=== PATIENT | female | born 1970 | race Caucasian/White ===

== ENCOUNTER 2019-03-09 18:56 | Inpatient (IN) | payer BC, MEDICAID ==
[~2019-03-09] VITALS: Ht 154.9 cm; Wt 93.0 kg
[2019-03-09] MEDS: NACL 0.9% 1,000 ML IV SCH (04:29)
[2019-03-09 19:02] VITALS: BP 126/89
--- NOTE | 2019-03-09 19:18 | NUR ---
PT C/O FEVER, BODY ACHES, HEADACHE, CHILLS X2 DAYS. PT WENT TO URGENT CARE AND WAS TOLD SHE HAD EAR INFECTION. C/O RLQ ABD PAIN, ABD SLIGHTLY TENDER TO PALP. PT STATES URGENT CARE SENT PT TO ER TO RULE OUT APPENDICITIS. PT STATES SHE HAS NAUSEA W/ ONE EPISODE OF VOMITING LAST NIGHT. DENIES DIARRHEA. TOOK TYLENOL AT 1300 TODAY. LMP 02/23/19. VSS AT THIS TIME. MEDHX: DENIES ALLERGIES: DENIES
--- NOTE | 2019-03-09 19:26 | NUR ---
Dr. Peres examining patient.
[2019-03-09] MEDS ORDERED: NACL 0.9% 1,000 ML IV SCH (19:35)
[2019-03-09] MEDS ORDERED: ACETAMINOPHEN 325 MG TAB PO ONE (19:35)
[2019-03-09] MEDS ORDERED: ONDANSETRON 4 MG/2 ML VIAL IVP ONE (19:35)
[2019-03-09 20:14] LABS: APPEARANCE,URINE CLOUDY (CLEAR); BILIRUBIN,URINE NEGATIVE (NEGATIVE); BLOOD, URINE 3+ (NEGATIVE); COLOR,URINE YELLOW (YELLOW); LEUKOCYTE ESTERASE ,URINE TRACE (NEGATIVE); NITRITE, URINE POSITIVE (NEGATIVE); UGLUCOSE NEGATIVE (NEGATIVE)
[2019-03-09 20:15] LABS: BASOPHILS # (AUTO) 0.1 K/uL (0.00-0.22); EOSINOPHILS % (AUTO) 0.2 % (0.0-4.0); LYMPHOCYTES # (AUTO) 2.8 K/uL (2.5-16.5); RED CELL DISTRIBUTION WIDTH 14.3 % (11.6-13.7)
[2019-03-09 20:17] LABS: BASOPHILS % (AUTO) 0.5 % (0.0-2.0); HEMATOCRIT 38.9 % (36-48); HEMOGLOBIN 12.4 g/dL (12.0-16.0); LYMPHOCYTES % (AUTO) 16.5 % (20.5-51.1); MEAN CORPUSCULAR HEMOGLOBIN 26 pg (27-31); MEAN CORPUSCULAR HGB CONC 32 g/dL (33-37); MEAN CORPUSCULAR VOLUME 82.6 fL (80-94); MONOCYTES # (AUTO) 2.1 K/uL (0.8-1.0); MONOCYTES % (AUTO) 12.1 % (1.7-9.3); NEUTROPHILS % (AUTO) 70.7 % (42.2-75.2); PLATELET COUNT (AUTO) 318 K/uL (140-450); RED BLOOD CELL COUNT(AUTO) 4.71 MIL/uL (4.20-5.40); WHITE BLOOD COUNT (AUTO) 16.9 K/uL (4.8-10.8)
[2019-03-09 20:31] LABS: WBC,URINE 80-100 /HPF (0-5)
[2019-03-09 20:32] LABS: YEAST,URINE None Seen /HPF (None Seen)
--- NOTE | 2019-03-09 20:43 | NUR ---
PT TAKEN TO CT
--- NOTE | 2019-03-09 20:52 | NUR ---
PT RETURN FROM CT
[2019-03-09 21:00] LABS: ANION GAP 13.8 (8-16); CARBON DIOXIDE 25.9 mmol/L (21-32); CREATININE 0.8 mg/dL (0.6-1.3); POTASSIUM 3.7 mmol/L (3.5-5.1)
[2019-03-09 21:06] LABS: ALBUMIN 3.8 g/dL (3.4-5.0); TOTAL BILIRUBIN 0.5 mg/dL (0.0-1.0)
[2019-03-09] MEDS ORDERED: cefTRIAXone 1,000 MG VIAL ONE (22:59)
[2019-03-09] MEDS ORDERED: NACL 0.9% 1,000 ML IV ONE (23:10)
[2019-03-09] MEDS ORDERED: MORPHINE SULFATE 4 MG/ML SYR IVP ONE (23:10)
[2019-03-09] MEDS ORDERED: DOCUSATE SODIUM 100 MG GELCAP PO PRN (23:15)
[2019-03-09] MEDS ORDERED: MORPHINE SULFATE 2 MG/ML SYR IVP PRN (23:15)
[2019-03-09] MEDS ORDERED: ONDANSETRON 4 MG/2 ML VIAL IM/IVP PRN (23:15)
[2019-03-09] MEDS ORDERED: HYDROcodone/APAP 5/325 MG 1 TAB TAB PO PRN (23:15)
[2019-03-09] MEDS ORDERED: ZOLPIDEM 5 MG TAB PO PRN (23:15)
[2019-03-09 23:50] VITALS: BP 123/66
--- NOTE | 2019-03-09 23:50 | NUR ---
RECEIVED BEDSIDE REPORT FROM ED RN ELLE, FOR PT'S CONTINUITY OF CARE. PT IS AAOX4, AMBULATORY, ENGLISH AND AZERI SPEAKING, FAMILY MEMBER AT BEDSIDE, HAS RIGHT AC 20G, ON ROOM AIR, IS ON BOATSWAIN'S MATE, PT C/O OF LEFT SIDE HEADACHE, AND RIGHT LOWER BACK PAIN, VS CHECKED AND CHARTED. EXPLAINED TO PT THE SUPERVISOR CHEMICAL ROUTINE, PT AND FAMILY MEMBER VERBALIZED UNDERSTANDING. WILL MONITOR PT THROUGHOUT SHIFT.
--- NOTE | 2019-03-09 23:50 | NUR ---
CARE TRANFERED AND REPORT GIVEN TO GRIS RN ROOM 120B. TRANSFERED VIA GURNEY WITH VSS.
[2019-03-09 23:52] LABS: BARBITURATE, URINE NEG. ng/ml (NEG <=200); BENZODIAZEPINE, URINE NEG. ng/mL (NEG <=200); CANNABINOID, URINE NEG. ng/mL (NEG <=50); COCAINE, URINE NEG. ng/mL (NEG <=300); OPIATE, URINE NEG. ng/mL (NEG <=2000); PHENCYCLIDINE SCREEN,URINE NEG. ng/mL (NEG <=25)
[2019-03-10 00:22] LABS: PROTHROMBIN TIME 11.2 secs (10.8-13.4)
[2019-03-10 00:26] LABS: FREE T4 (FREE THYROXINE) 1.24 ng/dL (0.76-1.46); MAGNESIUM 1.7 mg/dL (1.8-2.4); PHOSPHORUS 2.9 mg/dL (2.5-4.9); THYROID STIMULATING HORMONE 2.26 uIU/mL (0.34-3.74)
[2019-03-10] MEDS: ACETAMINOPHEN 325 MG TAB PO PRN ×4 (00:49→23:34)
[2019-03-10] MEDS: KETOROLAC 15 MG/ML VIAL IVP SCH ×2 (01:21→03:10)
--- NOTE | 2019-03-10 01:35 | NUR ---
MD EXPLAINED CT RESULT TO PT. RECOMMENDED NG TUBE PLACEMENT, PT REFUSED NG TUBE INSERTION.
--- NOTE | 2019-03-10 01:40 | NUR ---
PT STARTED TO HAVE CHILLS, REQUESTED FOR WARMING BLANKET. WARMING BLANKET APPLIED. PT STATES PAIN WENT DOWN.
--- NOTE | 2019-03-10 01:50 | NUR ---
TEMP 103.2, NOTIFIED , ORDERED 1L NS BOLUS, AND ADMINISTER TORADOL IVPUSH NOW. COOLING MEASURES IN PLACE.
[2019-03-10] MEDS ORDERED: NACL 0.9% 1,000 ML IV ONE (02:00)
--- NOTE | 2019-03-10 02:10 | NUR ---
IV SITE INFILTRATED. PT C/O PAIN ON THE IV SITE. APNS AND AWARE. WILL INSERT NEW IV.
--- NOTE | 2019-03-10 02:17 | NUR ---
RE-CHECKED VS TEMP 103.2 ORAL, BP 124/54, RR 18, P 133, 96% O2 SAT. MD AWARE. COOLING MEASURES IN PLACE.
--- NOTE | 2019-03-10 02:55 | NUR ---
IV INSERTION SUCCESSFUL. NEW IV SITE LEFT HAND 20G. WILL RESTART IV FLUIDS AND WILL ADMINISTER IV PUSH TORADOL MEDICATION NOW PER MD ORDER. PT TEMP 102.9, COOLING MEASURES IN PLACE. WILL CONTINUE TO MONITOR PT.
--- NOTE | 2019-03-10 03:39 | NUR ---
PT HEART RATE 119, COOLING MEASURES IN PLACE, PT DENIES ANY PAIN. MD AND REDUCTION FURNACE OPERATOR HELPER AWARE.
[2019-03-10 04:00] VITALS: BP 105/54
--- NOTE | 2019-03-10 04:00 | NUR ---
VS CHECKED AND CHARTED. TEMP 99.6, HEART RATE 107, 120 ON TELE MONITOR. FINANCIAL COST ANALYST AND MD AWARE. WILL CONTINUE TO MONITOR PT.
[2019-03-10] MEDS: PANTOPRAZOLE 40 MG INJ VIAL IVP SCH ×2 (04:33→08:18)
[2019-03-10] MEDS: NACL 0.9% 1,000 ML IV SCH ×5 (05:19→23:33)
--- NOTE | 2019-03-10 06:30 | NUR ---
PT LYING DOWN ASLEEP WITH NO SIGNS OF DISTRESS. WILL ENDORSE TO AM SHIFT RN FOR PT'S CONTINUITY OF CARE.
[2019-03-10 07:21] LABS: BASOPHILS % (AUTO) 0.3 % (0.0-2.0); EOSINOPHILS # (AUTO) 0.1 K/uL (0-0.4); EOSINOPHILS % (AUTO) 0.7 % (0.0-4.0); HEMOGLOBIN 9.6 g/dL (12.0-16.0); LYMPHOCYTES % (AUTO) 7.5 % (20.5-51.1); MEAN CORPUSCULAR HEMOGLOBIN 26 pg (27-31); MEAN CORPUSCULAR HGB CONC 32 g/dL (33-37); MEAN CORPUSCULAR VOLUME 82.4 fL (80-94); MONOCYTES # (AUTO) 1.7 K/uL (0.8-1.0); MONOCYTES % (AUTO) 12.3 % (1.7-9.3); NEUTROPHILS # (AUTO) 10.9 K/uL (1.8-7.7); NEUTROPHILS % (AUTO) 79.2 % (42.2-75.2); PLATELET COUNT (AUTO) 281 K/uL (140-450); RED BLOOD CELL COUNT(AUTO) 3.64 MIL/uL (4.20-5.40); RED CELL DISTRIBUTION WIDTH 14.4 % (11.6-13.7); WHITE BLOOD COUNT (AUTO) 13.8 K/uL (4.8-10.8)
--- NOTE | 2019-03-10 07:25 | NUR ---
RECEIVED BEDSIDE REPORT FROM GEODETIC ADVISOR NURSE FOR CONTINUITY OF CARE. PT IS AAOX4, AMBULATORY, MALDIVIAN AND FINNISH SPEAKING, RESPIRATIONS EVEN AND UNLABORED ON ROOM AIR, IV TO RIGHT AC 20G, PATENT, ASYMPTOMATIC, AND INFUSING IVF WELL. VS WNL. ORAL TEMP 98.3. UPDATED BOARD. VERBALIZED PLAN OF CARE WITH PATIENT, SHE VERBALIZED UNDERSTANDING. PATIENT NOW ON CLEAR LIQUID DIET INSTEAD OF NPO, PROVIDED WATER, AND CALLED DIETARY TO FOLLOW UP WITH BREAKFAST TRAY FOR PATIENT. CALL LIGHT WITHIN REACH, WILL CONTINUE TO MONITOR PATIENT.
[2019-03-10 07:40] LABS: ANION GAP 12.7 (8-16); CARBON DIOXIDE 23.5 mmol/L (21-32); CREATININE 0.7 mg/dL (0.6-1.3); POTASSIUM 3.2 mmol/L (3.5-5.1)
[2019-03-10 07:58] VITALS: BP 103/51
--- NOTE | 2019-03-10 08:04 | NUR ---
PATIENT HAS BEEN SCREENED AND CATEGORIZED HIGH NUTRITION RISK. PATIENT WILL BE SEEN WITHIN 1-2 DAYS OF ADMISSION. 03/10/19-03/11/[address]
[2019-03-10] MEDS: SUCRALFATE 1 GM TAB PO SCH ×2 (08:18→20:20)
[2019-03-10] MEDS: LACTOBACILLUS RHAMNOSUS GG 1 EACH CAP PO SCH (08:18)
--- NOTE | 2019-03-10 08:20 | NUR ---
ORDERED MEDICATIONS GIVEN. PATIENT TOLERATED THEM WELL. PATIENT CURRENTLY SITTING UP IN BED EATING CLEAR LIQUID BREAKFAST. NO COMPLAINTS OF NAUSEA AT THIS TIME. VS WNL. CALL LIGHT WITHIN REACH, WILL CONTINUE TO MONITOR PATIENT.
[2019-03-10] MEDS ORDERED: PANTOPRAZOLE 40 MG INJ VIAL IVP SCH (09:00)
[2019-03-10] MEDS ORDERED: POTASSIUM CHLORIDE 20 MEQ, LIDOCAINE MPF 1% 25 MG in NACL 0.9% 250 ML IV ONE (09:30)
--- NOTE | 2019-03-10 09:35 | NUR ---
PT C/O HEADACHE. PRN TYLENOL GIVEN. PATIENT'S SON AT BEDSIDE. UPDATED HIM ON PATIENT'S STATUS AND PLAN OF CARE FOR THE DAY. HE VERBALIZED UNDERSTANDING. CALL LIGHT WITHIN REACH, WILL CONTINUE TO MONITOR PATIENT.
[2019-03-10] MEDS ORDERED: POTASSIUM CHLORIDE 20% 40 MEQ/15 ML UDC PO SCH (10:00)
[2019-03-10] MEDS ORDERED: MAG SULF 2000 MG/WATER PREMIX 50 ML IV SCH (10:00)
--- NOTE | 2019-03-10 10:30 | NUR ---
ORDERED MEDICATIONS GIVEN. PATIENT TOLERATED THEM WELL. SISTER AT BEDSIDE. UPDATED HER ON PATIENT'S CONDITION AND PLAN OF CARE, SHE VERBALIZED UNDERSTANDING. PATIENT'S STATES THAT HEADACHE IS BETTER BUT STILL PRESENT. WILL REASSESS PATIENT PAIN. ALL NEEDS MET, CALL LIGHT WITHIN REACH, WILL CONTINUE TO MONITOR PATIENT.
--- NOTE | 2019-03-10 11:10 | NUR ---
DR. DAI IN TO SEE THE PATIENT. SISTER AT BEDSIDE. WILL WAIT FOR HIS EVALUATION.
[2019-03-10] MEDS ORDERED: APAP/BUTAL/CAFF 325/50/40 MG 1 TAB PO PRN (14:00)
--- NOTE | 2019-03-10 14:05 | NUR ---
PATIENT RESTING IN BED, C/O HEADACHE, PRN TYLENOL NOT DUE, AND REQUESTED TO HAVE DIET ADVANCED. DR. MATIAS AWARE OF PATIENT'S REQUEST TO ADVANCE DIET AND HEADACHE MEDICATION. NEW ORDERS IN. PATIENT NOW ON REGULAR DIET, CALLED DIETARY, LEFT MESSAGE ABOUT REGULAR LUNCH TRAY FOR PATIENT. ALSO NEW ORDERS IN FOR HEADACHE MEDICATIONS. WAITING FOR PHARMACY TO VERIFY.
--- NOTE | 2019-03-10 14:14 | NUR ---
PRN MEDICATION GIVEN FOR HEADACHE. PATIENT TOLERATING IT WELL. INFORM PATIENT THAT CALL TO DIETARY WAS MADE. WAITING FOR REGULAR TRAY. PATIENT AWARE. CALL LIGHT WITHIN REACH, WILL CONTINUE TO MONITOR PATIENT.
[2019-03-10 15:39] VITALS: BP 141/85
--- NOTE | 2019-03-10 15:47 | NUR ---
DIETARY BROUGHT TRAY FOR PATIENT. PATIENT NOW SITTING UP IN EATING. WILL CONTINUE TO MONITOR PATIENT.
--- NOTE | 2019-03-10 19:29 | NUR ---
REPORT RECEIVED FROM AM NURSE AT BEDSIDE. PT IN STABLE CONDITION. AAOX4. INTRODUCED SELF TO PT. BOARD UPDATED. NO COMPLAINTS OF PAIN. NO SOB. FEBRILE@101.9. PT WAS ALREADY MEDICATED WITH TYL AT 1700. WILL REASSESS AND GIVE TYL WHEN IT IS DUE. PT IS AMBULATORY. IV SITE L HAND 20G RUNNING NS@200ML/HR PATENT AND INTACT. SKIN WARM, DRY, AND INTACT WITH NO OPEN WOUNDS. BED LOCKED IN LOW POSITION. CALL HESTER WITHIN REACH. SAFETY PRECAUTION IN PLACE. ALL NEEDS MET AT THIS TIME.
[2019-03-10] MEDS: CALCIUM CARBONATE 500 MG TAB PO SCH (20:20)
--- NOTE | 2019-03-10 20:20 | NUR ---
CAITEPHIManda BYNUM AND ARMAAN. CARAFATE AND OSCAL GIVEN PO. PT TOLERATED WELL.
--- NOTE | 2019-03-10 22:00 | NUR ---
PT SLEEPING COMFORTABLY BUT AROUSABLE. NO S/S OF DISTRESS NOTED. WILL CONTINUE TO MONITOR.
--- NOTE | 2019-03-10 22:56 | NUR ---
REPORT GIVEN TO LOKI TERRAZAS. PT IN STABLE CONDITION.
--- NOTE | 2019-03-10 22:57 | NUR ---
RECEIVED REPORT FROM BERNIE TERRAZAS.PT IS STABLE .IVF IS IN PROGRESS.WILL CONTINUE MONITORING.
--- NOTE | 2019-03-10 23:34 | NUR ---
TYL GIVEN FOR FEVER OF 103.0. PT TOLERATED WELL.
[2019-03-11] VITALS: BP 117/56
--- NOTE | 2019-03-11 02:25 | NUR ---
TEMP.TRENDING DOWN TO 98.8.NO C/O PAIN NOW.
--- NOTE | 2019-03-11 04:41 | NUR ---
SLEEPING.NO DISTRESS NOTED.
--- NOTE | 2019-03-11 06:08 | NUR ---
CHECKED TEMP.=99.0.INFORMED RESIDENT.NO C/O PAIN OR ANY DISCOMFORT.
[2019-03-11 06:42] LABS: ANION GAP 9.6 (8-16); CARBON DIOXIDE 25.8 mmol/L (21-32); CREATININE 0.6 mg/dL (0.6-1.3); POTASSIUM 3.4 mmol/L (3.5-5.1)
[2019-03-11 06:44] LABS: HEMATOCRIT 28.4 % (36-48); HEMOGLOBIN 9.1 g/dL (12.0-16.0); MEAN CORPUSCULAR HEMOGLOBIN 26 pg (27-31); MEAN CORPUSCULAR HGB CONC 32 g/dL (33-37); MEAN CORPUSCULAR VOLUME 82.2 fL (80-94); PLATELET COUNT (AUTO) 235 K/uL (140-450); RED BLOOD CELL COUNT(AUTO) 3.46 MIL/uL (4.20-5.40); RED CELL DISTRIBUTION WIDTH 14.4 % (11.6-13.7); WHITE BLOOD COUNT (AUTO) 10.4 K/uL (4.8-10.8)
[2019-03-11 06:49] LABS: MAGNESIUM 1.8 mg/dL (1.8-2.4); PHOSPHORUS 2.9 mg/dL (2.5-4.9)
--- NOTE | 2019-03-11 07:10 | NUR ---
RECEIVED BEDSIDE REPORT FROM EHS TEACHER NURSE FOR CONTINUITY OF CARE. PATIENT IS AWAKE AND RESTING ON BED AT THIS TIME. RESPIRATION EVEN AND UNLABORED ON RA. DENIED PAIN, SOB AND DIZZINESS. NO SIGNS OF DISTRESS NOTED. IV CLEAN AND INTACT, INFUSING PER MD ORDER. SKIN INTACT AND DRY. PATIENT IS CONTINENT AND ABLE TO AMBULATE. DISCUSSED PLAN OF CARE WITH PATIENT AND PATIENT VERBALIZED UNDERSTANDING. SAFETY MEASURES IN PLACE. BED IN LOW POSITION AND CALL LIGHT WITHIN REACH. INSTRUCTED PATIENT TO USE THE CALL LIGHT FOR ANY ASSISTANCE AND PATIENT WAS AWARE.
[2019-03-11 07:22] LABS: LYMPHOCYTES % (MANUAL) 18 % (20-46); MONOCYTES % (MANUAL) 14 % (5-12)
[2019-03-11 08:00] VITALS: BP 131/63
[2019-03-11] MEDS: PANTOPRAZOLE 40 MG INJ VIAL IVP SCH (09:26)
[2019-03-11] MEDS: LACTOBACILLUS RHAMNOSUS GG 1 EACH CAP PO SCH (09:26)
[2019-03-11] MEDS: SUCRALFATE 1 GM TAB PO SCH ×2 (09:27→20:19)
[2019-03-11] MEDS: CALCIUM CARBONATE 500 MG TAB PO SCH ×2 (09:27→20:20)
[2019-03-11] MEDS: ACETAMINOPHEN 325 MG TAB PO PRN (09:27)
[2019-03-11] MEDS: NACL 0.9% 1,000 ML IV SCH ×4 (09:32→22:10)
--- NOTE | 2019-03-11 09:32 | NUR ---
ADMINISTERED MEDS PER MD ORDER, PATIENT TOLERATED WELL. MEDS EDUCATION PROVIDED TO PATIENT AT BEDSIDE, AND PATIENT VERBALIZED UNDERSTANDING. PATIENT COMPLAINED SHE HAS MILD HEADACHE 2/10, CHECKED TEMPERATURE AND RECEIVED 99 TEMPORALLY, ADMINISTERED PRN ACETAMINOPHEN PER MD ORDER, PATIENT TOLERATED WELL. PATIENT AWAKE AND TALKING TO SISTERS BY BEDSIDE. SAFETY MEASURES IN PLACE. BED IN LOW POSITION AND CALL LIGHT WITHIN REACH. INSTRUCTED PATIENT TO USE THE CALL LIGHT FOR ANY ASSISTANCE AND PATIENT WAS AWARE.
--- NOTE | 2019-03-11 11:16 | NUR ---
PATIENT AWAKE AND TALKING TO SON BRANDON AT BEDSIDE. NO SIGNS OF DISTRESS NOTED. SAFETY MEASURES IN PLACE. INSTRUCTED PATIENT AND SON BRANDON TO USE THE CALL LIGHT FOR ANY ASSISTANCE AND BOTH WAS AWARE.
[2019-03-11] MEDS ORDERED: POTASSIUM CHLORIDE 10 MEQ TABER PO SCH (11:31)
--- NOTE | 2019-03-11 11:51 | NUR ---
ADMINISTERED POTASSIUM CHLORIDE FOR LOW POTASSIUM FROM AM LAB PER MD ORDER, PATIENT TOLERATED WELL. MED EDUCATION PROVIDED TO PATIENT AND PATIENT WAS AWARE. PATIENT AWAKE AND SITTING UP ON BED. DENIED PAIN, SOB AND DIZZINESS. NO SIGNS OF DISTRESS NOTED. SAFETY MEASURES IN PLACE. BED IN LOW POSITION AND CALL LIGHT WITHIN REACH. INSTRUCTED PATIENT TO USE THE CALL LIGHT FOR ANY ASSISTANCE AND PATIENT SAID OK.
--- NOTE | 2019-03-11 13:47 | NUR ---
PATIENT AWAKE AND RESTING ON BED AT THIS TIME. DENIED PAIN, SOB AND DIZZINESS. NO SIGNS OF DISTRESS NOTED. SAFETY MEASURES IN PLACE. BED IN LOW POSITION AND CALL LIGHT WITHIN REACH. INSTRUCTED PATIENT TO USE THE CALL LIGHT FOR ANY ASSISTANCE AND PATIENT WAS AWARE.
--- NOTE | 2019-03-11 15:03 | NUR ---
03/11/19 RD INITIAL ASSESSMENT COMPLETED PLEASE REFER TO NUTRITION ASSESSMENT UNDER CARE ACTIVITY FOR ESTIMATED NUTRITIONAL NEEDS. 1. CONTINUE REGULAR DIET TOLERATED 2. RD PROVIDED NUTRITION EDUCATION FOR GENERAL HEALTHY EATING 3. RD TO FOLLOW-UP 3-5 DAYS, MODERATE RISK GEOVANNA OSCAR RD
--- NOTE | 2019-03-11 15:50 | NUR ---
PATIENT IS TAKING A NAP COMFORTABLY AT THIS TIME. EVEN AND UNLABORED CHEST RISES ON RA NOTED. NO SIGNS OF DISTRESS NOTED. SAFETY MEASURES IN PLACE. BED IN LOW POSITION AND CALL LIGHT WITHIN REACH.
[2019-03-11 16:00] VITALS: BP 125/69
--- NOTE | 2019-03-11 17:31 | NUR ---
PATIENT AWAKE AND RESTING ON BED AT THIS TIME. NO SIGNS OF DISTRESS NOTED. SAFETY MEASURES IN PLACE. BED IN LOW POSITION AND CALL LIGHT WITHIN REACH. INSTRUCTED PATIENT TO USE THE CALL LIGHT FOR ANY ASSISTANCE AND PATIENT WAS AWARE.
--- NOTE | 2019-03-11 19:26 | NUR ---
ENDORSED PATIENT AT BEDSIDE TO RECREATION DIRECTOR NURSE FOR CONTINUITY OF CARE. PATIENT AWAKE AND RESTING ON BED. NO SIGNS OF DISTRESS NOTED. PATIENT IS IN STABLE CONDITION. SAFETY MEASURES IN PLACE.
[2019-03-11] MEDS: ACETAMINOPHEN EXTRA STRENGTH 500 MG TAB PO PRN (20:20)
--- NOTE | 2019-03-11 20:20 | NUR ---
ADMINISTERED SCHEDULED PO AND IV ABX ORDERED. PT TOLERATED THEM WELL. PT C/O HEADACHE 11/11, ADMINISTERED PO PRN PAIN MEDICATION ORDERED/ WILL CONTINUE TO MONITOR PT.
--- NOTE | 2019-03-11 22:10 | NUR ---
HUNG NEW IV FLUID ORDERED. MADE PT COMFORTABLE, GAVE NEW PITCHER OF ICE WATER REQUESTED. PT DENIES ANY PAIN AT THIS TIME.
[2019-03-12] VITALS: BP 130/74
--- NOTE | 2019-03-12 00:10 | NUR ---
VITAL SIGNS CHECKED AND CHARTED. PT SLEEPING, WOKE UP AND DENIES ANY PAIN OR DISCOMFORT AT THIS TIME. WILL CONTINUE TO MONITOR PT.
--- NOTE | 2019-03-12 02:30 | NUR ---
MADE ROUNDS. PT LYING DOWN ASLEEP, WITH NO SIGNS OF DISTRESS. WILL CONTINUE TO MONITOR PT.
[2019-03-12] MEDS: NACL 0.9% 1,000 ML IV SCH ×3 (03:35→12:19)
--- NOTE | 2019-03-12 03:35 | NUR ---
HUNG NEW IV FLUID ORDERED. PT WOKE UP AND DENIES ANY PAIN OR DISCOMFORT AT THIS TIME. WILL CONTINUE TO MONITOR PT.
[2019-03-12] MEDS: ACETAMINOPHEN EXTRA STRENGTH 500 MG TAB PO PRN (05:37)
--- NOTE | 2019-03-12 05:40 | NUR ---
PT C/O HEADACHE 11/11. ADMINISTERED PO PRN PAIN MEDICATION ORDERED. WILL CONTINUE TO MONITOR PT.
--- NOTE | 2019-03-12 06:00 | NUR ---
PT ASLEEP WITH NO SIGNS OF DISTRESS. WILL ENDORSE TO AM SHIFT RN FOR CONTINUITY OF CARE.
[2019-03-12 06:45] LABS: BASOPHILS % (AUTO) 0.6 % (0.0-2.0); EOSINOPHILS # (AUTO) 0.1 K/uL (0-0.4); EOSINOPHILS % (AUTO) 1.4 % (0.0-4.0); HEMATOCRIT 28.4 % (36-48); HEMOGLOBIN 9.1 g/dL (12.0-16.0); LYMPHOCYTES # (AUTO) 1.8 K/uL (2.5-16.5); LYMPHOCYTES % (AUTO) 26.1 % (20.5-51.1); MEAN CORPUSCULAR HEMOGLOBIN 27 pg (27-31); MEAN CORPUSCULAR HGB CONC 32 g/dL (33-37); MEAN CORPUSCULAR VOLUME 82.7 fL (80-94); MONOCYTES % (AUTO) 14.7 % (1.7-9.3); NEUTROPHILS % (AUTO) 57.2 % (42.2-75.2); PLATELET COUNT (AUTO) 293 K/uL (140-450); RED BLOOD CELL COUNT(AUTO) 3.43 MIL/uL (4.20-5.40); RED CELL DISTRIBUTION WIDTH 14.3 % (11.6-13.7); WHITE BLOOD COUNT (AUTO) 6.9 K/uL (4.8-10.8)
--- NOTE | 2019-03-12 07:34 | NUR ---
RECEIVED BEDSIDE REPORT FROM COPYWRITING INTERN NURSE FOR CONTINUITY OF CARE. PATIENT IS AAOX4, COOPERATIVE. RESPIRATION EVEN AND UNLABORED ON RA. DENIES PAIN, SOB AND DIZZINESS. NO SIGNS OF DISTRESS NOTED. IV CLEAN AND INTACT, INFUSING PER MD ORDER. SKIN INTACT AND DRY. PATIENT IS CONTINENT AND ABLE TO AMBULATE. DISCUSSED PLAN OF CARE WITH PATIENT AND PATIENT VERBALIZED UNDERSTANDING. SAFETY MEASURES IN PLACE. BED IN LOW POSITION AND CALL LIGHT WITHIN REACH. INSTRUCTED PATIENT TO USE THE CALL LIGHT FOR ANY ASSISTANCE AND PATIENT WAS AWARE. WILL ROUND FREQUENTLY ON PT.
[2019-03-12 07:38] LABS: MAGNESIUM 1.8 mg/dL (1.8-2.4); PHOSPHORUS 2.7 mg/dL (2.5-4.9)
[2019-03-12 07:46] LABS: POTASSIUM 3.2 mmol/L (3.5-5.1)
[2019-03-12 07:47] LABS: ANION GAP 12.6 (8-16); CARBON DIOXIDE 26.6 mmol/L (21-32); CREATININE 0.6 mg/dL (0.6-1.3)
[2019-03-12 08:15] VITALS: BP 128/71
--- NOTE | 2019-03-12 09:24 | NUR ---
ADMINISTERED MORNING MEDS TO PT. PT TOLERATED THEM WELL. WILL CONTINUE TO ROUND FREQUENTLY ON PT. BED IN LOW POSITION, CALL LIGHT WITHIN REACH.
[2019-03-12] MEDS ORDERED: POTASSIUM CHLORIDE 40 MEQ, LIDOCAINE MPF 1% 25 MG in NACL 0.9% 250 ML IV SCH (09:30)
[2019-03-12] MEDS: PANTOPRAZOLE 40 MG INJ VIAL IVP SCH (09:55)
[2019-03-12] MEDS: CALCIUM CARBONATE 500 MG TAB PO SCH (09:55)
[2019-03-12] MEDS: LACTOBACILLUS RHAMNOSUS GG 1 EACH CAP PO SCH (09:56)
[2019-03-12] MEDS: SUCRALFATE 1 GM TAB PO SCH (09:56)
--- NOTE | 2019-03-12 11:24 | NUR ---
PT RESTING IN BED. ALL NEEDS MET. WILL CONTINUE TO ROUND FREQUENTLY ON PT. BED IN LOW POSITION, CALL LIGHT WITHIN REACH.
[2019-03-12] MEDS ORDERED: OSC500 PO (12:00)
[2019-03-12] MEDS ORDERED: LACT10CA1 PO (12:00)
[2019-03-12] MEDS ORDERED: CIPR250T6 PO (12:00)
--- NOTE | 2019-03-12 13:53 | NUR ---
PT RESTING IN BED. ALL NEEDS MET. WILL CONTINUE TO ROUND FREQUENTLY ON PT. BED IN LOW POSITION, CALL LIGHT WITHIN REACH.
--- NOTE | 2019-03-12 14:20 | NUR ---
PT DISCHARGED HOME FOR SELF CARE. ALL DISCHARGE TEACHING WAS GIVEN TO PT. PT VERBALIZED UNDERSTANDING OF ABX THERAPY AND IMPORTANCE OF FINISHING ALL MEDICATION. ALSO EXPLAINED THAT FOLLOW-UP APPT. WAS MADE FOR PT. INFO GIVEN TO PT. PT VERBALIZED UNDERSTANDING OF ALL TEACHING. PT SIGNED ALL DISCHARGE PAPERWORK. IV REMOVED WITH TIP INTACT. WRIST BANDS REMOVED AND PLACED IN SHRED BIN. ALL PERSONAL BELONGINGS TAKE NHOME WITH PT. PT LEFT IN STABLE CONDITION ACCOMPANIED BY SON.
== END 2019-03-12 14:50 | disposition home or self-care (01) | DRG 720 ==
LOC: MED 18:56 → MTU 23:10
PROVIDERS: ADMIT Family Medicine; ATTEND Family Medicine
DX: A41.9 Sepsis, unspecified organism (principal); E83.42 Hypomagnesemia; K76.0 Fatty (change of) liver, not elsewhere classified; N12 Tubulo-interstitial nephritis, not specified as acute or chronic; H66.91 Otitis media, unspecified, right ear; E87.6 Hypokalemia
CPT/HCPCS: 36415; 71045; 74018; 80048; 80053; 80305; 81001; 82150; 83036; 83605; 83690; 83735; 83880; 84100; 84134; 84439; 84443; 84484; 84703; 85025; 85610; 85730; 87040; 87081; 87086; 87186; 87804; 93005; 96365; 96375; 99285; C9113; J0696; J1885; J2001; J2270; J2405; J3475; J3480; J7030; J7060; Q0092